=== PATIENT | male | born 1955 | race Asian ===

== ENCOUNTER → 2017-07-11 | Outpatient (CLI) | payer OTHER | END | disposition home or self-care (01) | LOC: CFH 06:39 | PROVIDERS: ATTEND Internal Medicine Cardiovascular Disease | DX: I08.3 Combined rheumatic disorders of mitral, aortic and tricuspid valves (principal); I72.8 Aneurysm of other specified arteries; I10 Essential (primary) hypertension | CPT/HCPCS: 78452; 93017; 93306; A9502 ==

== ENCOUNTER 2017-07-30 09:35 | Day surgery (SDC) | payer OTHER ==
[2017-07-25 14:06] VITALS: BP 141/71
[2017-07-25 14:36] LABS: HEMATOCRIT 42.8 % (39.2-51.8); HEMOGLOBIN 14.2 g/dL (13.7-18.0); WHITE BLOOD COUNT 4.4 x10^3/uL (3.4-10)
[2017-07-25 14:48] LABS: ASPARTATE AMINO TRANSFERASE 22 U/L (15-37); BLOOD UREA NITROGEN 17 mg/dL (7-18)
[~2017-07-30] VITALS: Ht 165.1 cm; Wt 61.3 kg
[~2017-07-30 09:35] MED LIST: ASPI-496 PO; BIMA2.5D EACHEYE; TIMO5DRO5 EACHEYE; VALS160T3 PO; VALS1TAB7 PO
[2017-07-30] MEDS ORDERED: SODIUM CHLORIDE 0.9% 1,000 ML IV SCH (10:05)
[2017-07-30] MEDS ORDERED: MIDAZOLAM 1 MG/ML, 5ML ONE (10:28)
[2017-07-30] MEDS ORDERED: FENTANYL PF 100 MCG/2ML ONE (10:28)
[2017-07-30] MEDS ORDERED: LIDOCAINE 2%, 20ML ONE (10:29)
[2017-07-30] MEDS ORDERED: ACETAMINOPHEN 325 MG TABLET PO PRN (10:30)
[2017-07-30] MEDS ORDERED: BISACODYL 5 MG EC TABLET PO PRN (10:30)
[2017-07-30] MEDS ORDERED: ASPIRIN 325 MG TABLET EC PO ONE (10:30)
[2017-07-30] MEDS ORDERED: ONDANSETRON 2MG/ML, 2ML IVPush PRN (10:30)
[2017-07-30] MEDS ORDERED: BISACODYL 10 MG SUPP PR PRN (10:30)
[2017-07-30] MEDS ORDERED: NITROGLYCERIN 5 MG/ML, 10ML ONE (11:28)
[2017-07-30] MEDS ORDERED: BIVALIRUDIN 250 MG ONE (11:28)
[2017-07-30] MEDS ORDERED: TICAGRELOR 90 MG TABLET ONE (11:28)
[2017-07-30] MEDS ORDERED: HEPARIN 1,000 UNITS/ML, 10ML ONE (11:29)
[2017-07-30] MEDS ORDERED: METO25TA2 PO (12:56)
[2017-07-30] MEDS ORDERED: ATOR10TA9 PO (12:56)
== END 2017-07-30 14:40 | disposition home or self-care (01) ==
LOC: CACL 09:35
PROVIDERS: ATTEND Internal Medicine Cardiovascular Disease
DX: I25.10 Atherosclerotic heart disease of native coronary artery without angina pectoris (principal); I10 Essential (primary) hypertension; Z98.49 Cataract extraction status, unspecified eye; Z87.19 Personal history of other diseases of the digestive system; E78.5 Hyperlipidemia, unspecified; G47.9 Sleep disorder, unspecified
CPT/HCPCS: 93458; 99156; C1760; C1894; J2250; J3010; J3490; Q9967; 36415; 71020; 80053; 83036; 85025; 85610; 85730; J0583; J1644

== ENCOUNTER 2019-02-27 16:44 | Inpatient (IN) | payer OTHER, MEDICARE ==
[~2019-02-27] VITALS: Ht 165.1 cm; Wt 64.1 kg
[~2019-02-27 16:44] MED LIST changes: +ATOR10TA9 PO; +METO25TA2 PO
--- NOTE | 2019-02-27 17:26 | NUR ---
pt presented to ed with altered level of consiousness. apparently pt returned home and was unable to remember where he was or what he was doing per . pt alert to self. pt unaaware of date, time, day of the week. pt up ambulatory. pt placed in room and placed on bp and cont. pulse oximeter. assessment completed. pa at bedside.
--- NOTE | 2019-02-27 17:31 | NUR ---
EDTA and EMT student at bedside for IV start.
[2019-02-27] MEDS ORDERED: VALS1TAB26 PO (17:35)
--- NOTE | 2019-02-27 17:37 | NUR ---
REPORT GIVEN TO JENNIFER HELM
--- NOTE | 2019-02-27 18:02 | NUR ---
Dr. Bryant at bedside to evaluate pt.
[2019-02-27 18:10] LABS: BASOPHILS # (AUTO) 0.01 x10^3/uL (0-0.1); BASOPHILS % (AUTO) 0 % (0-1); EOSINOPHILS # (AUTO) 0.02 x10^3/uL (0-0.4); EOSINOPHILS % (AUTO) 1 % (1-7); LYMPHOCYTES # (AUTO) 1.17 x10^3/uL (1-3.4); LYMPHOCYTES % (AUTO) 23 % (22-44); MD NO; MEAN CORPUSCULAR HEMOGLOBIN 32.3 pg (27.5-34.5); MEAN CORPUSCULAR HGB CONC 34.5 g/dL (33.2-36.2); MEAN CORPUSCULAR VOLUME 93.6 fL (81-97); MEAN PLATELET VOLUME 6.5 fL (7.4-10.4); MONOCYTES # (AUTO) 0.69 x10^3/uL (0.2-0.8); MONOCYTES % (AUTO) 13 % (2-9); NEUTROPHILS # (AUTO) 3.29 x10^3/uL (1.8-6.8); NEUTROPHILS % (AUTO) 63 % (42-75); PLATELET COUNT 209 x10^3/uL (130-400); RED BLOOD COUNT 4.58 x10^6/uL (4.38-5.82)
--- NOTE | 2019-02-27 18:16 | NUR ---
EDT at bedside for EKG.
[2019-02-27 18:17] LABS: ALBUMIN 4.1 g/dL (3.4-5.0); ANION GAP 6 mmol/L (5-15); CALCIUM 8.9 mg/dL (8.5-10.1); CHLORIDE 96 mmol/L (98-107)
[2019-02-27 18:21] LABS: ALANINE AMINOTRANSFERASE 36 U/L (12-78); ALKALINE PHOSPHATASE 46 U/L (45-117); BILIRUBIN,TOTAL 1.4 mg/dL (0.2-1.0); CREATININE 1.17 mg/dL (0.7-1.3); INTERNATIONAL NORMALIZED RATIO 1.08 (0.93-1.1); PROTHROMBIN TIME 11.3 Seconds (9.6-11.5); TOTAL PROTEIN 7.6 g/dL (6.4-8.2)
--- NOTE | 2019-02-27 19:25 | NUR ---
Dr. Bryant at bedside to discuss ED findings and POC.
--- NOTE | 2019-02-27 19:29 | NUR ---
Pt ambulated to bathroom with assistance of 1 family member. Pt back to bed with no incident.
[2019-02-27] MEDS ORDERED: ASPIRIN 325 MG TABLET PO ONE (19:30)
[2019-02-27] MEDS ORDERED: ASPIRIN 325 MG TABLET ONE (20:11)
--- NOTE | 2019-02-27 20:20 | NUR ---
Pt medicated per MAR.
--- NOTE | 2019-02-27 20:29 | NUR ---
Telephone SBAR report given to floor RN. Pt and family made aware of new room assignment.
[2019-02-27] MEDS ORDERED: BISACODYL 10 MG SUPP PR PRN (20:30)
[2019-02-27] MEDS ORDERED: POLYETHYLENE GLYCOL 17 GM PACKET PO PRN (20:30)
[2019-02-27] MEDS ORDERED: ONDANSETRON ODT 4 MG PO PRN (20:30)
[2019-02-27] MEDS ORDERED: ACETAMINOPHEN 325 MG TABLET PO PRN (20:30)
[2019-02-27 20:44] LABS: ANION GAP 7 mmol/L (5-15); CHLORIDE 98 mmol/L (98-107); CREATININE 0.94 mg/dL (0.7-1.3)
[2019-02-27 21:00] VITALS: BP 155/82
[2019-02-27 22:12] LABS: MICROSCOPIC NOT IND
[2019-02-27 22:14] LABS: CULTURE INDICATED? NO
[2019-02-27] MEDS ORDERED: OMNIPAQUE 350 MG/ML, 100ML BOTTLE ONE (22:30)
[2019-02-27] MEDS: SODIUM CHLORIDE 0.9% 1,000 ML IV SCH (23:26)
[2019-02-27] MEDS: SODIUM CHLORIDE FLUSH 10ML SYR IVF SCH (23:27)
[2019-02-27] MEDS: ATORVASTATIN 10 MG TABLET PO SCH (23:29)
[2019-02-27] MEDS: LATANOPROST OPHTH 0.005%, 2.5ML EACHEYE SCH (23:29)
[2019-02-28 01:15] VITALS: BP 101/59
[2019-02-28 02:21] VITALS: BP 115/57
[2019-02-28 04:19] VITALS: BP 108/55
[2019-02-28 07:22] VITALS: BP 129/73
[2019-02-28] MEDS ORDERED: METOPROLOL SUCCINATE 25 MG TAB.ER.24H PO SCH (09:00)
[2019-02-28] MEDS: SENNA/DOCUSATE TABLET PO SCH (09:00)
[2019-02-28] MEDS: SODIUM CHLORIDE 0.9% 1,000 ML IV SCH ×2 (09:30→19:30)
[2019-02-28] MEDS: VALSARTAN 160 MG TABLET PO SCH (09:57)
[2019-02-28] MEDS: HYDROCHLOROTHIAZIDE 25 MG TABLET PO SCH (09:57)
[2019-02-28] MEDS: SODIUM CHLORIDE FLUSH 10ML SYR IVF SCH ×2 (09:58→20:47)
[2019-02-28] MEDS: TIMOLOL OPHTH 0.5%, 5ML EACHEYE SCH (09:58)
[2019-02-28] MEDS: ASPIRIN 81 MG TABLET EC PO SCH (09:58)
[2019-02-28 14:00] VITALS: BP 119/69
[2019-02-28 19:41] VITALS: BP 144/78
[2019-02-28] MEDS: ATORVASTATIN 10 MG TABLET PO SCH (20:45)
[2019-02-28] MEDS: LATANOPROST OPHTH 0.005%, 2.5ML EACHEYE SCH (20:46)
[2019-03-01 00:36] VITALS: BP 133/81
[2019-03-01] MEDS: SODIUM CHLORIDE 0.9% 1,000 ML IV SCH (04:34)
[2019-03-01 06:41] VITALS: BP 160/71
[2019-03-01] MEDS ORDERED: METO25TA2 PO (07:47)
[2019-03-01] MEDS: TIMOLOL OPHTH 0.5%, 5ML EACHEYE SCH (08:23)
[2019-03-01] MEDS: HYDROCHLOROTHIAZIDE 25 MG TABLET PO SCH (08:23)
[2019-03-01] MEDS: ASPIRIN 81 MG TABLET EC PO SCH (08:23)
[2019-03-01] MEDS: VALSARTAN 160 MG TABLET PO SCH (08:23)
[2019-03-01] MEDS: SENNA/DOCUSATE TABLET PO SCH (08:24)
[2019-03-01] MEDS: SODIUM CHLORIDE FLUSH 10ML SYR IVF SCH (08:24)
== END 2019-03-01 10:20 | disposition home or self-care (01) | DRG 71 ==
LOC: ED 17:54 → EDIP 19:29 → 4EST 20:45 → DCLOUNGE 03-01 09:56
PROVIDERS: ADMIT Family Medicine; ATTEND Family Medicine
DX: G45.4 Transient global amnesia (principal); E87.1 Hypo-osmolality and hyponatremia; E78.5 Hyperlipidemia, unspecified; R00.1 Bradycardia, unspecified; H40.9 Unspecified glaucoma; I10 Essential (primary) hypertension; L30.9 Dermatitis, unspecified; Z82.3 Family history of stroke; Z83.3 Family history of diabetes mellitus; Z82.49 Family history of ischemic heart disease and other diseases of the circulatory system
CPT/HCPCS: 36415; 70450; 70496; 70498; 70551; 80048; 80053; 81003; 83735; 85025; 85610; 93005; 93308; 99285; G0378; Q9967; J7030

== ENCOUNTER 2019-05-17 07:23 | Day surgery (SDC) | payer OTHER ==
[~2019-05-17] VITALS: Ht 165.1 cm; Wt 62.7 kg
[~2019-05-17 07:23] MED LIST changes: +VALS1TAB26 PO
[2019-05-17 07:28] VITALS: BP 152/74
[2019-05-17] MEDS ORDERED: LIDOCAINE 2%, 20ML ONE (08:22)
== END 2019-05-17 08:55 | disposition home or self-care (01) ==
LOC: CACL 07:23
PROVIDERS: ATTEND Internal Medicine Cardiovascular Disease
DX: G45.9 Transient cerebral ischemic attack, unspecified (principal); I10 Essential (primary) hypertension; E78.5 Hyperlipidemia, unspecified; Q67.6 Pectus excavatum; I25.2 Old myocardial infarction; E66.3 Overweight; Z68.22 Body mass index [BMI] 22.0-22.9, adult; Z72.89 Other problems related to lifestyle; Z79.82 Long term (current) use of aspirin; Z79.899 Other long term (current) drug therapy; Z82.3 Family history of stroke; Z82.49 Family history of ischemic heart disease and other diseases of the circulatory system
CPT/HCPCS: 33285; C1764

== ENCOUNTER 2020-04-04 04:59 | Emergency (ER) | payer MEDICARE, OTHER ==
[~2020-04-04] VITALS: Ht 165.1 cm; Wt 61.6 kg
[2020-04-04] MEDS ORDERED: LIDOCAINE-MPF 1%, 5ML ONE ×2 (05:20→05:23)
[2020-04-04] MEDS ORDERED: LIDOCAINE-MPF 2%, 2ML INFIL ONE (05:30)
[2020-04-04] MEDS: LIDOCAINE-MPF 1%, 5ML INFIL ONE ×2 (05:32→05:39)
[2020-04-04] MEDS ORDERED: HYDROcodone/APAP 5/325 TABLET ONE (05:41)
[2020-04-04] MEDS ORDERED: HYDROcodone/APAP 5/325 TABLET PO ONE (06:00)
[2020-04-04 06:24] VITALS: BP 130/85
== END 2020-04-04 06:26 | disposition home or self-care (01) ==
LOC: ED 05:56
DX: S43.102A Unspecified dislocation of left acromioclavicular joint, initial encounter (principal); I10 Essential (primary) hypertension; W06.XXXA Fall from bed, initial encounter; Y93.89 Activity, other specified; Y92.098 Other place in other non-institutional residence as the place of occurrence of the external cause; Y99.8 Other external cause status
CPT/HCPCS: 99283

== ENCOUNTER 2021-07-13 17:57 | Inpatient (IN) | payer MEDICARE, OTHER ==
[~2021-07-13] VITALS: Ht 165.1 cm; Wt 64.1 kg
[~2021-07-13 17:57] MED LIST changes: +ALBUMIN HUMAN 5% 500 ML IV PRN; +CEFUROXIME 1.5 GM in SODIUM CHLORIDE 0.9% 50 ML IVPB PRN; +DEXMEDETOMIDINE 200 MCG in SODIUM CHLORIDE 0.9% 48 ML IV PRN; +EPINEPHRINE 5 MG in SODIUM CHLORIDE 0.9% 245 ML IV PRN; +MANNITOL PMX 20% 500 ML IVPB PRN; +PHENYLEPHRINE 50 MG in SODIUM CHLORIDE 0.9% 245 ML IV PRN; +POTASSIUM CHLORIDE 80 MEQ, SODIUM BICARBONATE 8.4% 10 MEQ, MAGNESIUM SULFATE 0.5 GM, LI... IV PRN; +REGULAR INSULIN 100 UNITS in SODIUM CHLORIDE 0.9% 99 ML IV PRN; +VANCOMYCIN 1,000 MG in SODIUM CHLORIDE 0.9% 100 ML IV PRN
--- NOTE | 2021-07-13 18:23 | NUR ---
Pt has implanted LOOP recorder, placed by dr campo. Pt appears weak, tired, nsr no ectopy. IV placed bloods drawn and sent, EKG done, on monitor nsr no ecotpy. Call gonsalves in reach
[2021-07-13] MEDS ORDERED: SODIUM CHLORIDE FLUSH 10ML SYR IVF ONE (18:30)
--- NOTE | 2021-07-13 18:31 | NUR ---
Christopher at bedside for evaluation and further orders.
[2021-07-13 18:32] LABS: BASOPHILS % (AUTO) 1 % (0-1); EOSINOPHILS % (AUTO) 0 % (1-7); LYMPHOCYTES % (AUTO) 10 % (22-44); MEAN CORPUSCULAR HEMOGLOBIN 32.1 pg (27.5-34.5); MEAN CORPUSCULAR HGB CONC 34.3 g/dL (33.2-36.2); MEAN PLATELET VOLUME 6.6 fL (7.4-10.4); MONOCYTES % (AUTO) 12 % (2-9); NEUTROPHILS % (AUTO) 78 % (42-75); PLATELET COUNT 152 x10^3/uL (130-400); RED BLOOD COUNT 4.18 x10^6/uL (4.38-5.82); RED CELL DISTRIBUTION WIDTH 13.2 % (9.4-14.8)
--- NOTE | 2021-07-13 18:36 | NUR ---
Further orders to follow.
--- NOTE | 2021-07-13 18:39 | NUR ---
IVF infusing wide open, repeat EKG for appearing junctional rhythm, no p waves present on tele now. No cp, no sob.
[2021-07-13 18:41] LABS: ALANINE AMINOTRANSFERASE 47 U/L (12-78); ALBUMIN 3.2 g/dL (3.4-5.0); ANION GAP 8 mmol/L (5-15); CALCIUM 8.8 mg/dL (8.5-10.1); CHLORIDE 97 mmol/L (98-107); CREATININE 1.09 mg/dL (0.7-1.3)
[2021-07-13 18:46] LABS: ALKALINE PHOSPHATASE 52 U/L (45-117); BILIRUBIN,TOTAL 1.2 mg/dL (0.2-1.0); TOTAL PROTEIN 7.3 g/dL (6.4-8.2)
[2021-07-13] MEDS ORDERED: SODIUM CHLORIDE 0.9% 1,000ML IVBOLUS ONE (19:00)
[2021-07-13] MEDS ORDERED: POTASSIUM CHLORIDE 20 MEQ TAB.ER.PRT PO ONE (19:00)
[2021-07-13] MEDS ORDERED: POTASSIUM CHLORIDE 20 MEQ TAB.ER.PRT ONE (19:19)
[2021-07-13] MEDS ORDERED: ASPIRIN 81 MG TABLET EC ONE (19:21)
--- NOTE | 2021-07-13 19:29 | NUR ---
spoke with erp, pt placed on pads, another piv placed, medicated per emar, cards to come and consult. pt asymptomatic at this time 1 liter ns still running
[2021-07-13] MEDS ORDERED: ASPIRIN 325 MG TABLET PO ONE (19:30)
[2021-07-13] MEDS ORDERED: ATROPINE 0.4 MG/ML, 1ML IVPush ONE (20:00)
[2021-07-13] MEDS ORDERED: TELM1TAB25 PO (20:49)
--- NOTE | 2021-07-13 20:50 | NUR ---
hosp at bedside. pt to go to equipment operator/laborer/supervisor
[2021-07-13] MEDS: MUPIROCIN OINT 2%, 15GM NAS SCH (21:00)
[2021-07-13] MEDS: ATORVASTATIN 40 MG TABLET PO SCH (21:00)
[2021-07-13] MEDS ORDERED: DIPHENHYDRAMINE 25 MG CAPSULE PO PRN (21:00)
[2021-07-13] MEDS ORDERED: FENTANYL PF 100 MCG/2ML ONE (21:15)
[2021-07-13] MEDS ORDERED: BIVALIRUDIN 250 MG ONE (21:15)
[2021-07-13] MEDS ORDERED: LIDOCAINE 2%, 20ML ONE (21:15)
[2021-07-13] MEDS ORDERED: VERAPAMIL 2.5 MG/ML, 2ML ONE (21:15)
[2021-07-13] MEDS ORDERED: HEPARIN 1,000 UNITS/ML, 10ML ONE ×2 (21:15→22:58)
[2021-07-13] MEDS ORDERED: MIDAZOLAM 1 MG/ML, 5ML ONE (21:15)
--- NOTE | 2021-07-13 22:16 | NUR ---
report given to nicolasa yen. [facility]
[2021-07-13] MEDS ORDERED: PAPAVERINE 30 MG/ML, 2ML ONE (22:58)
[2021-07-13] MEDS ORDERED: MIDAZOLAM 10MG/2 ML ONE (23:09)
[2021-07-13] MEDS ORDERED: ROCURONIUM 10MG/ML,5ML ONE (23:09)
[2021-07-13] MEDS ORDERED: FENTANYL PF 250 MCG/5ML ONE ×4 (23:09)
[2021-07-13] MEDS ORDERED: PHENYLEPHRINE 10 MG/ML ONE (23:27)
[2021-07-13] MEDS ORDERED: EPINEPHRINE SYRINGE 0.1 MG/ML, 10ML ONE (23:27)
[2021-07-14] MEDS ORDERED: SODIUM CHLORIDE 0.9% 1,000 ML IV SCH
[2021-07-14] MEDS ORDERED: INSULIN REGULAR 100 UNITS/ML, 3ML VIAL IVPush PRN
[2021-07-14] MEDS ORDERED: GLUCAGON 1 MG IM PRN
[2021-07-14] MEDS ORDERED: NITROGLYCERIN/D5W PMX 250 ML IV PRN
[2021-07-14] MEDS ORDERED: OXYcodone IR 5MG TABLET PO PRN
[2021-07-14] MEDS ORDERED: PHENYLEPHRINE 50 MG in SODIUM CHLORIDE 0.9% 245 ML IV PRN
[2021-07-14] MEDS ORDERED: DEXTROSE 4 GM TAB.CHEW PO PRN
[2021-07-14] MEDS ORDERED: DOBUTAMINE 250 MG in SODIUM CHLORIDE 0.9% 230 ML IV PRN
[2021-07-14] MEDS ORDERED: PROMETHAZINE 25 MG SUPP PR PRN
[2021-07-14] MEDS ORDERED: PROCHLORPERAZINE 5 MG/ML, 2ML IVPush PRN
[2021-07-14] MEDS ORDERED: VASOPRESSIN 20 UNIT in SODIUM CHLORIDE 0.9% 99 ML IV PRN
[2021-07-14] MEDS ORDERED: DEXTROSE 50%, 50ML SYRINGE IVPush PRN
[2021-07-14] MEDS ORDERED: CALCIUM CHLORIDE 13.6 MEQ in SODIUM CHLORIDE 0.9% 100 ML IVPB PRN
[2021-07-14] MEDS ORDERED: REGULAR INSULIN 100 UNITS in SODIUM CHLORIDE 0.9% 99 ML IV PRN
[2021-07-14] MEDS ORDERED: ALBUMIN HUMAN 5% 500 ML IV PRN
[2021-07-14] MEDS ORDERED: HYDROmorphone 1 MG/ML, 1ML INJ IV PRN
[2021-07-14] MEDS ORDERED: ONDANSETRON 2MG/ML, 2ML IVPush PRN
[2021-07-14] MEDS ORDERED: SODIUM BICARB 8.4%, 50ML SYRINGE IV PRN
[2021-07-14] MEDS ORDERED: CALCIUM CHLORIDE 10%, 10ML SYR ONE ×2 (01:00→03:18)
[2021-07-14] MEDS ORDERED: ROCURONIUM 10MG/ML,5ML ONE (01:00)
[2021-07-14] MEDS ORDERED: PROTAMINE SULFATE 10 MG/ML, 25ML ONE ×2 (01:00)
[2021-07-14] MEDS ORDERED: FENTANYL PF 250 MCG/5ML ONE (02:44)
[2021-07-14] MEDS ORDERED: SODIUM BICARBONATE 1 MEQ/ML, 50ML VIAL ONE (03:18)
[2021-07-14] MEDS ORDERED: HEPARIN 1,000 UNITS/ML, 30ML ONE (03:18)
[2021-07-14] MEDS ORDERED: SODIUM BICARB 8.4%, 50ML SYRINGE ONE (03:18)
[2021-07-14] MEDS ORDERED: LIDOCAINE 2%, 20ML ONE (03:18)
[2021-07-14] MEDS ORDERED: ALBUMIN HUMAN 25% 50 ML ONE (03:19)
[2021-07-14] MEDS ORDERED: MAGNESIUM SULFATE PMX 2GM/50ML 50 ML ONE (03:19)
[2021-07-14 03:49] LABS: GLUCOSE BY BLOOD GAS ANALYZER 119 mg/dL (70-110); HEMOGLOBIN BY BLOOD GAS ANALYZ 10.3 g/dL (14.0-18.0); POTASSIUM BY BLOOD GAS ANALYZR 3.8 mmol/L (3.6-5.5)
[2021-07-14] MEDS: INSULIN LISPRO 100 UNITS/ML, PEN SQ-INSULIN SCH ×6 (04:00→20:24)
[2021-07-14] MEDS: KSCALE TO 4.5 IV SCH ×3 (04:00→18:09)
[2021-07-14 04:23] LABS: INTERNATIONAL NORMALIZED RATIO 1.34 (0.93-1.1); PROTHROMBIN TIME 14.1 Seconds (9.6-11.5)
[2021-07-14] MEDS ORDERED: POTASSIUM CHLORIDE PMX 100 ML IV ONE ×3 (04:30→22:30)
[2021-07-14] MEDS: MAGNESIUM SULFATE 1 GM in SODIUM CHLORIDE 0.9% 100 ML IVPB SCH (04:42)
[2021-07-14] MEDS: MUPIROCIN OINT 2%, 15GM NAS SCH ×2 (06:00→20:20)
[2021-07-14] MEDS: ACETAMINOPHEN 500 MG TABLET PO SCH ×4 (06:00→20:22)
[2021-07-14] MEDS: OMEPRAZOLE 20 MG CAPSULE.DR PO SCH (06:05)
[2021-07-14] MEDS: EPINEPHRINE 5 MG in SODIUM CHLORIDE 0.9% 245 ML IV PRN ×3 (06:07→20:19)
[2021-07-14] MEDS: SENNA/DOCUSATE TABLET PO SCH ×2 (09:00→21:58)
[2021-07-14] MEDS: SODIUM CHLORIDE FLUSH 10ML SYR IVF SCH ×2 (09:00→20:54)
[2021-07-14] MEDS: ASPIRIN 81 MG TABLET EC PO SCH (09:00)
[2021-07-14] MEDS: DOCUSATE 100 MG CAPSULE PO SCH ×2 (09:00→20:55)
[2021-07-14] MEDS: CLOPIDOGREL 75 MG TABLET PO SCH (09:00)
[2021-07-14] MEDS: CHLORHEXIDINE 15 ML UDC MM SCH ×2 (09:00→20:54)
[2021-07-14] MEDS: POLYETHYLENE GLYCOL 17 GM PACKET PO SCH (09:00)
[2021-07-14 09:46] LABS: BASOPHILS % (AUTO) 0 % (0-1); EOSINOPHILS % (AUTO) 0 % (1-7); LYMPHOCYTES % (AUTO) 5 % (22-44); MEAN CORPUSCULAR HGB CONC 33.5 g/dL (33.2-36.2); MEAN PLATELET VOLUME 8.1 fL (7.4-10.4); MONOCYTES % (AUTO) 8 % (2-9); NEUTROPHILS % (AUTO) 87 % (42-75); PLATELET COUNT 151 x10^3/uL (130-400); RED BLOOD COUNT 2.85 x10^6/uL (4.38-5.82); RED CELL DISTRIBUTION WIDTH 13.4 % (9.4-14.8)
[2021-07-14 09:49] LABS: ANION GAP 14 mmol/L (5-15); CALCIUM 7.4 mg/dL (8.5-10.1); CHLORIDE 112 mmol/L (98-107)
[2021-07-14] MEDS: FENTANYL PF 100 MCG/2ML IV PRN ×3 (09:59→22:10)
[2021-07-14] MEDS: CEFUROXIME 1.5 GM in SODIUM CHLORIDE 0.9% 50 ML IVPB SCH ×2 (10:35→23:37)
[2021-07-14] MEDS: LACTATED RINGERS 500 ML IV PRN ×3 (10:55→17:07)
[2021-07-14] MEDS: VANCOMYCIN 900 MG in SODIUM CHLORIDE 0.9% 100 ML IVPB SCH (12:06)
[2021-07-14 12:08] VITALS: BP 109/50
[2021-07-14] MEDS ORDERED: POTASSIUM CHLORIDE 30 MEQ in SODIUM CHLORIDE 0.9% 100 ML IV ONE (18:00)
[2021-07-14] MEDS: DEXMEDETOMIDINE 400 MCG in SODIUM CHLORIDE 0.9% 96 ML IV PRN (21:53)
[2021-07-14] MEDS: ATORVASTATIN 40 MG TABLET PO SCH (21:58)
[2021-07-14] MEDS: OXYcodone IR 5MG TABLET PO PRN (22:19)
[2021-07-15] MEDS: KSCALE TO 4.5 IV SCH (00:09)
[2021-07-15] MEDS: INSULIN LISPRO 100 UNITS/ML, PEN SQ-INSULIN SCH ×6 (01:00→20:26)
[2021-07-15] MEDS: MAGNESIUM SULFATE 1 GM in SODIUM CHLORIDE 0.9% 100 ML IVPB SCH (01:14)
[2021-07-15] MEDS: VANCOMYCIN 900 MG in SODIUM CHLORIDE 0.9% 100 ML IVPB SCH (02:47)
[2021-07-15] MEDS: DEXMEDETOMIDINE 400 MCG in SODIUM CHLORIDE 0.9% 96 ML IV PRN ×2 (02:49→05:02)
[2021-07-15] MEDS: ACETAMINOPHEN 500 MG TABLET PO SCH ×4 (02:55→20:27)
[2021-07-15] MEDS: OXYcodone IR 5MG TABLET PO PRN (03:42)
[2021-07-15 04:41] LABS: BASOPHILS % (AUTO) 0 % (0-1); EOSINOPHILS % (AUTO) 0 % (1-7); LYMPHOCYTES % (AUTO) 7 % (22-44); MEAN CORPUSCULAR HEMOGLOBIN 32.1 pg (27.5-34.5); MEAN CORPUSCULAR HGB CONC 33.8 g/dL (33.2-36.2); MEAN PLATELET VOLUME 8.5 fL (7.4-10.4); MONOCYTES % (AUTO) 12 % (2-9); NEUTROPHILS % (AUTO) 82 % (42-75); PLATELET COUNT 104 x10^3/uL (130-400); RED BLOOD COUNT 2.63 x10^6/uL (4.38-5.82); RED CELL DISTRIBUTION WIDTH 13.8 % (9.4-14.8)
[2021-07-15 04:49] LABS: ANION GAP 5 mmol/L (5-15); CALCIUM 7.9 mg/dL (8.5-10.1); CHLORIDE 115 mmol/L (98-107); CREATININE 0.72 mg/dL (0.7-1.3)
[2021-07-15] MEDS: EPINEPHRINE 5 MG in SODIUM CHLORIDE 0.9% 245 ML IV PRN ×2 (05:02→17:48)
[2021-07-15] MEDS: SODIUM CHLORIDE FLUSH 10ML SYR IVF SCH ×2 (08:01→20:27)
[2021-07-15] MEDS: CARVEDILOL 3.125 MG TABLET PO SCH ×2 (08:08→20:14)
[2021-07-15] MEDS: MUPIROCIN OINT 2%, 15GM NAS SCH ×2 (08:08→17:28)
[2021-07-15] MEDS: ASPIRIN 81 MG TABLET EC PO SCH (08:18)
[2021-07-15] MEDS: ENOXAPARIN 40 MG/0.4 ML SQ SCH (08:18)
[2021-07-15] MEDS: CLOPIDOGREL 75 MG TABLET PO SCH (08:18)
[2021-07-15] MEDS: OMEPRAZOLE 20 MG CAPSULE.DR PO SCH (08:18)
[2021-07-15] MEDS: SENNA/DOCUSATE TABLET PO SCH ×2 (08:18→20:28)
[2021-07-15] MEDS: DOCUSATE 100 MG CAPSULE PO SCH (08:18)
[2021-07-15] MEDS: POLYETHYLENE GLYCOL 17 GM PACKET PO SCH (08:19)
[2021-07-15] MEDS: CHLORHEXIDINE 15 ML UDC MM SCH ×2 (08:19→20:13)
[2021-07-15] MEDS ORDERED: PROPOFOL 100 ML IV ONE (08:42)
[2021-07-15] MEDS: PROPOFOL 100 ML IV PRN ×2 (09:23→17:41)
[2021-07-15] MEDS: FUROSEMIDE 20 MG/2 ML IV SCH (16:53)
[2021-07-15] MEDS: DOCUSATE 50 MG/5 ML, 10ML UDC PO SCH (20:27)
[2021-07-15] MEDS: ATORVASTATIN 40 MG TABLET PO SCH (20:27)
[2021-07-15] MEDS ORDERED: ARTIFICIAL TEARS OINT 3.5 GM EACHEYE PRN (20:30)
[2021-07-16] MEDS ORDERED: BISACODYL 10 MG SUPP PR PRN
[2021-07-16] MEDS: INSULIN LISPRO 100 UNITS/ML, PEN SQ-INSULIN SCH ×6 (00:06→20:00)
[2021-07-16] MEDS: ACETAMINOPHEN 500 MG TABLET PO SCH ×4 (01:58→21:45)
[2021-07-16] MEDS: PROPOFOL 100 ML IV PRN ×4 (01:59→21:45)
[2021-07-16 04:44] LABS: BASOPHILS % (AUTO) 0 % (0-1); EOSINOPHILS % (AUTO) 0 % (1-7); LYMPHOCYTES % (AUTO) 12 % (22-44); MEAN CORPUSCULAR HGB CONC 33.8 g/dL (33.2-36.2); MEAN PLATELET VOLUME 8.4 fL (7.4-10.4); MONOCYTES % (AUTO) 8 % (2-9); NEUTROPHILS % (AUTO) 80 % (42-75); PLATELET COUNT 92 x10^3/uL (130-400); RED BLOOD COUNT 2.42 x10^6/uL (4.38-5.82); RED CELL DISTRIBUTION WIDTH 14.2 % (9.4-14.8)
[2021-07-16 04:48] LABS: CALCIUM 7.9 mg/dL (8.5-10.1); CREATININE 0.65 mg/dL (0.7-1.3)
[2021-07-16 05:00] LABS: ANION GAP 5 mmol/L (5-15); CHLORIDE 115 mmol/L (98-107)
[2021-07-16 05:23] VITALS: BP 111/77
[2021-07-16 05:30] VITALS: BP 117/54
[2021-07-16 05:45] VITALS: BP 94/52
[2021-07-16] MEDS: MUPIROCIN OINT 2%, 15GM NAS SCH ×2 (06:09→16:53)
[2021-07-16 06:15] VITALS: BP 107/54
[2021-07-16] MEDS: EPINEPHRINE 5 MG in SODIUM CHLORIDE 0.9% 245 ML IV PRN ×2 (07:00→18:15)
[2021-07-16 07:14] VITALS: BP 108/60
[2021-07-16] MEDS: CARVEDILOL 3.125 MG TABLET PO SCH ×2 (07:37→21:45)
[2021-07-16] MEDS: FUROSEMIDE 20 MG/2 ML IV SCH ×2 (08:17→16:52)
[2021-07-16] MEDS: CLOPIDOGREL 75 MG TABLET PO SCH (08:17)
[2021-07-16] MEDS: SENNA/DOCUSATE TABLET PO SCH ×2 (08:17→20:28)
[2021-07-16] MEDS: ENOXAPARIN 40 MG/0.4 ML SQ SCH (08:17)
[2021-07-16] MEDS: POTASSIUM CHLORIDE 20 MEQ PACKET PO SCH ×3 (08:17→16:52)
[2021-07-16] MEDS: POLYETHYLENE GLYCOL 17 GM PACKET PO SCH (08:17)
[2021-07-16] MEDS: ASPIRIN 81 MG TABLET EC PO SCH (08:17)
[2021-07-16] MEDS: DOCUSATE 50 MG/5 ML, 10ML UDC PO SCH ×2 (08:17→21:46)
[2021-07-16] MEDS: OMEPRAZOLE 20 MG CAPSULE.DR PO SCH (08:17)
[2021-07-16] MEDS: SODIUM CHLORIDE FLUSH 10ML SYR IVF SCH ×2 (08:19→21:47)
[2021-07-16 08:24] VITALS: BP 107/53
[2021-07-16 10:30] LABS: BASOPHILS % (AUTO) 0 % (0-1); EOSINOPHILS % (AUTO) 0 % (1-7); LYMPHOCYTES % (AUTO) 9 % (22-44); MEAN CORPUSCULAR HEMOGLOBIN 31.8 pg (27.5-34.5); MEAN PLATELET VOLUME 8.2 fL (7.4-10.4); MONOCYTES % (AUTO) 7 % (2-9); NEUTROPHILS % (AUTO) 84 % (42-75); PLATELET COUNT 86 x10^3/uL (130-400); RED BLOOD COUNT 2.95 x10^6/uL (4.38-5.82)
[2021-07-16] MEDS: ATORVASTATIN 40 MG TABLET PO SCH (21:45)
[2021-07-17] MEDS: INSULIN LISPRO 100 UNITS/ML, PEN SQ-INSULIN SCH ×6 (04:00→20:00)
[2021-07-17 04:09] LABS: BASOPHILS % (AUTO) 0 % (0-1); EOSINOPHILS % (AUTO) 0 % (1-7); LYMPHOCYTES % (AUTO) 9 % (22-44); MEAN CORPUSCULAR HEMOGLOBIN 32.4 pg (27.5-34.5); MEAN CORPUSCULAR HGB CONC 34.1 g/dL (33.2-36.2); MEAN PLATELET VOLUME 8.1 fL (7.4-10.4); MONOCYTES % (AUTO) 8 % (2-9); NEUTROPHILS % (AUTO) 83 % (42-75); PLATELET COUNT 79 x10^3/uL (130-400); RED BLOOD COUNT 2.84 x10^6/uL (4.38-5.82); RED CELL DISTRIBUTION WIDTH 14.1 % (9.4-14.8)
[2021-07-17] MEDS: ACETAMINOPHEN 500 MG TABLET PO SCH ×4 (04:11→20:30)
[2021-07-17 04:16] LABS: ANION GAP 4 mmol/L (5-15); CALCIUM 7.8 mg/dL (8.5-10.1); CHLORIDE 115 mmol/L (98-107)
[2021-07-17] MEDS: MUPIROCIN OINT 2%, 15GM NAS SCH ×2 (05:30→18:24)
[2021-07-17] MEDS: PROPOFOL 100 ML IV PRN (05:30)
[2021-07-17] MEDS: FUROSEMIDE 20 MG/2 ML IV SCH ×2 (08:20→16:25)
[2021-07-17] MEDS: CLOPIDOGREL 75 MG TABLET PO SCH (08:42)
[2021-07-17] MEDS: OMEPRAZOLE 20 MG CAPSULE.DR PO SCH (08:42)
[2021-07-17] MEDS: SENNA/DOCUSATE TABLET PO SCH ×2 (08:42→20:30)
[2021-07-17] MEDS: ASPIRIN 81 MG TABLET EC PO SCH (08:46)
[2021-07-17] MEDS: POLYETHYLENE GLYCOL 17 GM PACKET PO SCH (08:46)
[2021-07-17] MEDS: CARVEDILOL 3.125 MG TABLET PO SCH (08:46)
[2021-07-17] MEDS: POTASSIUM CHLORIDE 20 MEQ PACKET PO SCH ×2 (08:46→16:26)
[2021-07-17] MEDS: ENOXAPARIN 40 MG/0.4 ML SQ SCH (08:47)
[2021-07-17] MEDS: SODIUM CHLORIDE FLUSH 10ML SYR IVF SCH ×2 (08:47→20:31)
[2021-07-17] MEDS: MAGNESIUM SULFATE 1 GM in SODIUM CHLORIDE 0.9% 100 ML IVPB SCH (08:47)
[2021-07-17] MEDS: DOCUSATE 50 MG/5 ML, 10ML UDC PO SCH ×2 (08:48→20:30)
[2021-07-17] MEDS ORDERED: AMIODARONE 450 MG in DEXTROSE 5% 241 ML IV PRN (12:30)
[2021-07-17] MEDS ORDERED: FILTER 0.22 MICRON FOR AMIODARONE IV PRN (12:30)
[2021-07-17] MEDS ORDERED: AMIODARONE 150 MG in DEXTROSE 5% 100 ML IV ONE (12:30)
[2021-07-17] MEDS ORDERED: ETOMIDATE 20 MG/10 ML ONE (14:16)
[2021-07-17] MEDS ORDERED: SUCCINYLCHOLINE 20 MG/ML, 10ML ONE (14:16)
[2021-07-17] MEDS: ATORVASTATIN 40 MG TABLET PO SCH (20:30)
[2021-07-18] MEDS: PROPOFOL 100 ML IV PRN ×3 (02:59→20:29)
[2021-07-18] MEDS: ACETAMINOPHEN 500 MG TABLET PO SCH ×4 (03:44→21:10)
[2021-07-18] MEDS: INSULIN LISPRO 100 UNITS/ML, PEN SQ-INSULIN SCH ×6 (04:00→20:00)
[2021-07-18 05:24] LABS: BASOPHILS % (AUTO) 0 % (0-1); EOSINOPHILS % (AUTO) 0 % (1-7); LYMPHOCYTES % (AUTO) 12 % (22-44); MEAN CORPUSCULAR HEMOGLOBIN 32.1 pg (27.5-34.5); MEAN CORPUSCULAR HGB CONC 33.6 g/dL (33.2-36.2); MEAN PLATELET VOLUME 8.1 fL (7.4-10.4); MONOCYTES % (AUTO) 10 % (2-9); NEUTROPHILS % (AUTO) 78 % (42-75); PLATELET COUNT 78 x10^3/uL (130-400); RED CELL DISTRIBUTION WIDTH 14.1 % (9.4-14.8)
[2021-07-18 05:56] LABS: ANION GAP 7 mmol/L (5-15); CALCIUM 8.1 mg/dL (8.5-10.1); CHLORIDE 111 mmol/L (98-107)
[2021-07-18 05:57] LABS: <PLATELET ESTIMATE> DECREASED; <PLT MORPHOLOGY> NORMAL PLT MORPH; ANISOCYTOSIS 1+; OVALOCYTES 1+; POLYCHROMASIA 1+
[2021-07-18 05:58] LABS: CREATININE 0.81 mg/dL (0.7-1.3)
[2021-07-18] MEDS: MUPIROCIN OINT 2%, 15GM NAS SCH ×2 (07:06→17:28)
[2021-07-18] MEDS: POTASSIUM CHLORIDE 20 MEQ PACKET PO SCH ×2 (08:07→17:24)
[2021-07-18] MEDS: FUROSEMIDE 20 MG/2 ML IV SCH ×2 (08:07→17:24)
[2021-07-18] MEDS: POLYETHYLENE GLYCOL 17 GM PACKET PO SCH (09:00)
[2021-07-18] MEDS: DOCUSATE 50 MG/5 ML, 10ML UDC PO SCH ×2 (09:00→21:00)
[2021-07-18] MEDS: SENNA/DOCUSATE TABLET PO SCH ×2 (09:00→21:00)
[2021-07-18] MEDS: PANTOPRAZOLE GRAN. PKT 40 MG PO SCH (09:27)
[2021-07-18] MEDS: CLOPIDOGREL 75 MG TABLET PO SCH (09:27)
[2021-07-18] MEDS: ASPIRIN 81 MG TABLET EC PO SCH (09:27)
[2021-07-18] MEDS: ENOXAPARIN 40 MG/0.4 ML SQ SCH (09:28)
[2021-07-18] MEDS: SODIUM CHLORIDE FLUSH 10ML SYR IVF SCH ×2 (09:28→21:11)
[2021-07-18] MEDS: OXYcodone IR 5MG TABLET PO PRN (15:54)
[2021-07-18] MEDS: EPINEPHRINE 5 MG in SODIUM CHLORIDE 0.9% 245 ML IV PRN (18:52)
[2021-07-18] MEDS: ATORVASTATIN 40 MG TABLET PO SCH (21:11)
[2021-07-19] MEDS: PROPOFOL 100 ML IV PRN ×3 (03:12→20:58)
[2021-07-19 03:42] LABS: BASOPHILS % (AUTO) 1 % (0-1); EOSINOPHILS % (AUTO) 1 % (1-7); LYMPHOCYTES % (AUTO) 16 % (22-44); MEAN CORPUSCULAR HEMOGLOBIN 32.6 pg (27.5-34.5); MEAN CORPUSCULAR HGB CONC 34.5 g/dL (33.2-36.2); MEAN PLATELET VOLUME 8.7 fL (7.4-10.4); MONOCYTES % (AUTO) 13 % (2-9); NEUTROPHILS % (AUTO) 70 % (42-75); PLATELET COUNT 89 x10^3/uL (130-400); RED BLOOD COUNT 2.95 x10^6/uL (4.38-5.82); RED CELL DISTRIBUTION WIDTH 13.9 % (9.4-14.8)
[2021-07-19 03:50] LABS: ANION GAP 9 mmol/L (5-15); CHLORIDE 110 mmol/L (98-107); CREATININE 0.74 mg/dL (0.7-1.3)
[2021-07-19] MEDS: INSULIN LISPRO 100 UNITS/ML, PEN SQ-INSULIN SCH ×6 (04:00→20:50)
[2021-07-19] MEDS: PANTOPRAZOLE GRAN. PKT 40 MG PO SCH (07:17)
[2021-07-19] MEDS: POTASSIUM CHLORIDE 20 MEQ PACKET PO SCH ×3 (07:18→17:46)
[2021-07-19] MEDS: FUROSEMIDE 20 MG/2 ML IV SCH ×2 (07:18→17:46)
[2021-07-19] MEDS: AMIODARONE 450 MG in DEXTROSE 5% 241 ML IV PRN ×2 (08:46→16:10)
[2021-07-19] MEDS: POLYETHYLENE GLYCOL 17 GM PACKET PO SCH (09:00)
[2021-07-19] MEDS: SENNA/DOCUSATE TABLET PO SCH ×2 (09:00→20:51)
[2021-07-19] MEDS: ASPIRIN 81 MG TABLET EC PO SCH (09:08)
[2021-07-19] MEDS: DOCUSATE 50 MG/5 ML, 10ML UDC PO SCH ×2 (09:08→20:51)
[2021-07-19] MEDS: CLOPIDOGREL 75 MG TABLET PO SCH (09:08)
[2021-07-19] MEDS: ENOXAPARIN 40 MG/0.4 ML SQ SCH (09:09)
[2021-07-19] MEDS: SODIUM CHLORIDE FLUSH 10ML SYR IVF SCH ×2 (09:15→20:51)
[2021-07-19] MEDS: ATORVASTATIN 40 MG TABLET PO SCH (20:51)
[2021-07-19] MEDS ORDERED: ALBUMIN HUMAN 5% 500 ML IV ONE (21:30)
[2021-07-20] MEDS: AMIODARONE 450 MG in DEXTROSE 5% 241 ML IV PRN (02:04)
[2021-07-20] MEDS: PROPOFOL 100 ML IV PRN (02:41)
[2021-07-20 05:56] LABS: BASOPHILS % (AUTO) 0 % (0-1); EOSINOPHILS % (AUTO) 2 % (1-7); LYMPHOCYTES % (AUTO) 16 % (22-44); MEAN CORPUSCULAR HEMOGLOBIN 32.1 pg (27.5-34.5); MONOCYTES % (AUTO) 17 % (2-9); NEUTROPHILS % (AUTO) 65 % (42-75); PLATELET COUNT 91 x10^3/uL (130-400); RED BLOOD COUNT 2.69 x10^6/uL (4.38-5.82); RED CELL DISTRIBUTION WIDTH 13.7 % (9.4-14.8)
[2021-07-20 06:03] LABS: ANION GAP 8 mmol/L (5-15); CALCIUM 8.3 mg/dL (8.5-10.1); CHLORIDE 108 mmol/L (98-107); CREATININE 0.69 mg/dL (0.7-1.3)
[2021-07-20] MEDS: INSULIN LISPRO 100 UNITS/ML, PEN SQ-INSULIN SCH ×4 (06:34→21:19)
[2021-07-20] MEDS: FUROSEMIDE 20 MG/2 ML IV SCH ×2 (07:36→17:44)
[2021-07-20] MEDS: POTASSIUM CHLORIDE 20 MEQ PACKET PO SCH ×2 (07:36→17:43)
[2021-07-20] MEDS: PANTOPRAZOLE GRAN. PKT 40 MG PO SCH (07:36)
[2021-07-20] MEDS: POLYETHYLENE GLYCOL 17 GM PACKET PO SCH (09:00)
[2021-07-20] MEDS: SENNA/DOCUSATE TABLET PO SCH ×2 (09:00→21:07)
[2021-07-20] MEDS: ASPIRIN 81 MG TABLET EC PO SCH (09:00)
[2021-07-20] MEDS ORDERED: POTASSIUM CHLORIDE 20 MEQ PACKET PO ONE (09:30)
[2021-07-20] MEDS: AMIODARONE 200 MG TABLET PO SCH ×2 (09:56→21:08)
[2021-07-20] MEDS: DOCUSATE 50 MG/5 ML, 10ML UDC PO SCH ×2 (09:56→21:08)
[2021-07-20] MEDS: CLOPIDOGREL 75 MG TABLET PO SCH (09:56)
[2021-07-20] MEDS: ENOXAPARIN 40 MG/0.4 ML SQ SCH (09:57)
[2021-07-20] MEDS: SODIUM CHLORIDE FLUSH 10ML SYR IVF SCH ×2 (09:58→21:10)
[2021-07-20] MEDS: OXYcodone IR 5MG TABLET PO PRN ×3 (13:19→22:08)
[2021-07-20] MEDS: DEXMEDETOMIDINE 400 MCG in SODIUM CHLORIDE 0.9% 96 ML IV PRN ×2 (15:23→22:41)
[2021-07-20] MEDS: EPINEPHRINE 5 MG in SODIUM CHLORIDE 0.9% 245 ML IV PRN (19:41)
[2021-07-20] MEDS: ATORVASTATIN 40 MG TABLET PO SCH (21:08)
[2021-07-20] MEDS ORDERED: HALOPERIDOL 5 MG/ML IV ONE (21:30)
[2021-07-21] MEDS: DEXMEDETOMIDINE 400 MCG in SODIUM CHLORIDE 0.9% 96 ML IV PRN ×2 (03:55→17:50)
[2021-07-21 04:22] LABS: ANION GAP 6 mmol/L (5-15); CALCIUM 8.8 mg/dL (8.5-10.1); CHLORIDE 109 mmol/L (98-107); CREATININE 0.78 mg/dL (0.7-1.3)
[2021-07-21 04:24] LABS: BASOPHILS % (AUTO) 0 % (0-1); EOSINOPHILS % (AUTO) 1 % (1-7); LYMPHOCYTES % (AUTO) 10 % (22-44); MEAN CORPUSCULAR HEMOGLOBIN 32.5 pg (27.5-34.5); MEAN CORPUSCULAR HGB CONC 34.1 g/dL (33.2-36.2); MEAN PLATELET VOLUME 9.3 fL (7.4-10.4); MONOCYTES % (AUTO) 14 % (2-9); NEUTROPHILS % (AUTO) 74 % (42-75); PLATELET COUNT 103 x10^3/uL (130-400); RED BLOOD COUNT 2.98 x10^6/uL (4.38-5.82); RED CELL DISTRIBUTION WIDTH 13.8 % (9.4-14.8)
[2021-07-21] MEDS: INSULIN LISPRO 100 UNITS/ML, PEN SQ-INSULIN SCH ×4 (06:42→20:38)
[2021-07-21] MEDS: FUROSEMIDE 20 MG/2 ML IV SCH ×2 (07:34→17:00)
[2021-07-21] MEDS: POTASSIUM CHLORIDE 20 MEQ PACKET PO SCH ×2 (07:34→16:59)
[2021-07-21] MEDS: PANTOPRAZOLE GRAN. PKT 40 MG PO SCH (07:34)
[2021-07-21] MEDS ORDERED: SPIRONOLACTONE 25 MG TABLET PO SCH (09:00)
[2021-07-21] MEDS: POLYETHYLENE GLYCOL 17 GM PACKET PO SCH (09:00)
[2021-07-21] MEDS: SENNA/DOCUSATE TABLET PO SCH ×2 (09:00→20:35)
[2021-07-21] MEDS ORDERED: CARVEDILOL 3.125 MG TABLET ONE (09:33)
[2021-07-21] MEDS: ENOXAPARIN 40 MG/0.4 ML SQ SCH (09:35)
[2021-07-21] MEDS: CLOPIDOGREL 75 MG TABLET PO SCH (09:35)
[2021-07-21] MEDS: QUETIAPINE 25MG TABLET PO SCH (09:35)
[2021-07-21] MEDS: DOCUSATE 50 MG/5 ML, 10ML UDC PO SCH ×2 (09:35→20:36)
[2021-07-21] MEDS: SODIUM CHLORIDE FLUSH 10ML SYR IVF SCH ×2 (09:36→20:38)
[2021-07-21] MEDS: CARVEDILOL 3.125 MG TABLET PO SCH ×2 (09:36→17:46)
[2021-07-21] MEDS ORDERED: ASPIRIN 81 MG TABLET CHEW PO SCH (09:42)
[2021-07-21] MEDS: ASPIRIN 81 MG TABLET CHEW PO SCH (09:57)
[2021-07-21] MEDS: OXYcodone IR 5MG TABLET PO PRN ×2 (17:00→20:36)
[2021-07-21] MEDS: FENTANYL PF 100 MCG/2ML IV PRN (17:45)
[2021-07-21] MEDS: ATORVASTATIN 40 MG TABLET PO SCH (20:36)
[2021-07-21] MEDS: EPINEPHRINE 5 MG in SODIUM CHLORIDE 0.9% 245 ML IV PRN (22:54)
[2021-07-22] MEDS: FENTANYL PF 100 MCG/2ML IV PRN (00:14)
[2021-07-22] MEDS ORDERED: PHARMACOKINETIC MONITORING MC PRN (01:00)
[2021-07-22] MEDS ORDERED: VANCOMYCIN PER PHARMACY MC PRN (01:00)
[2021-07-22] MEDS: DEXMEDETOMIDINE 400 MCG in SODIUM CHLORIDE 0.9% 96 ML IV PRN ×4 (01:14→22:43)
[2021-07-22] MEDS: ACETAMINOPHEN 500 MG TABLET PO SCH ×2 (01:29→05:19)
[2021-07-22] MEDS ORDERED: VANCOMYCIN 1,500 MG in SODIUM CHLORIDE 0.9% 250 ML IV ONE (01:30)
[2021-07-22] MEDS: CEFEPIME 2 GM in DEXTROSE 5% 100 ML IV SCH ×3 (01:44→16:40)
[2021-07-22 03:22] LABS: BASOPHILS % (AUTO) 0 % (0-1); EOSINOPHILS % (AUTO) 1 % (1-7); LYMPHOCYTES % (AUTO) 5 % (22-44); MEAN CORPUSCULAR HGB CONC 33.6 g/dL (33.2-36.2); MONOCYTES % (AUTO) 9 % (2-9); NEUTROPHILS % (AUTO) 85 % (42-75); PLATELET COUNT 116 x10^3/uL (130-400); RED BLOOD COUNT 2.87 x10^6/uL (4.38-5.82); RED CELL DISTRIBUTION WIDTH 14.3 % (9.4-14.8)
[2021-07-22 03:29] LABS: ANION GAP 5 mmol/L (5-15); CALCIUM 8.7 mg/dL (8.5-10.1); CHLORIDE 109 mmol/L (98-107); CREATININE 0.81 mg/dL (0.7-1.3)
[2021-07-22] MEDS: CARVEDILOL 3.125 MG TABLET PO SCH (05:19)
[2021-07-22] MEDS: INSULIN LISPRO 100 UNITS/ML, PEN SQ-INSULIN SCH ×4 (06:39→23:00)
[2021-07-22] MEDS: POTASSIUM CHLORIDE 20 MEQ PACKET PO SCH ×2 (08:39→17:27)
[2021-07-22] MEDS: OXYcodone IR 5MG TABLET PO PRN (08:39)
[2021-07-22] MEDS: PANTOPRAZOLE GRAN. PKT 40 MG PO SCH (08:39)
[2021-07-22] MEDS: DOCUSATE 50 MG/5 ML, 10ML UDC PO SCH ×2 (10:10→22:09)
[2021-07-22] MEDS: ENOXAPARIN 40 MG/0.4 ML SQ SCH (10:11)
[2021-07-22] MEDS: QUETIAPINE 25MG TABLET PO SCH (10:11)
[2021-07-22] MEDS: POLYETHYLENE GLYCOL 17 GM PACKET PO SCH (10:11)
[2021-07-22] MEDS: SENNA/DOCUSATE TABLET PO SCH ×2 (10:11→20:44)
[2021-07-22] MEDS: ASPIRIN 81 MG TABLET CHEW PO SCH (10:11)
[2021-07-22] MEDS: FUROSEMIDE 20 MG/2 ML IV SCH ×2 (10:11→17:27)
[2021-07-22] MEDS: CLOPIDOGREL 75 MG TABLET PO SCH (10:12)
[2021-07-22] MEDS: SODIUM CHLORIDE FLUSH 10ML SYR IVF SCH ×2 (10:12→22:09)
[2021-07-22] MEDS: ACETAMINOPHEN 500 MG TABLET PO PRN (12:15)
[2021-07-22] MEDS: VANCOMYCIN 1,200 MG in SODIUM CHLORIDE 0.9% 250 ML IV SCH (17:23)
[2021-07-22] MEDS: ATORVASTATIN 40 MG TABLET PO SCH (22:09)
[2021-07-23] MEDS: CEFEPIME 2 GM in DEXTROSE 5% 100 ML IV SCH ×3 (01:03→16:04)
[2021-07-23 04:30] LABS: BASOPHILS % (AUTO) 1 % (0-1); EOSINOPHILS % (AUTO) 2 % (1-7); LYMPHOCYTES % (AUTO) 4 % (22-44); MEAN CORPUSCULAR HEMOGLOBIN 31.6 pg (27.5-34.5); MEAN CORPUSCULAR HGB CONC 33.2 g/dL (33.2-36.2); MEAN PLATELET VOLUME 9.7 fL (7.4-10.4); MONOCYTES % (AUTO) 7 % (2-9); NEUTROPHILS % (AUTO) 86 % (42-75); PLATELET COUNT 112 x10^3/uL (130-400); RED BLOOD COUNT 2.66 x10^6/uL (4.38-5.82); RED CELL DISTRIBUTION WIDTH 14.5 % (9.4-14.8)
[2021-07-23 04:45] LABS: CHLORIDE 109 mmol/L (98-107)
[2021-07-23 04:50] LABS: ANION GAP 5 mmol/L (5-15); CALCIUM 8.4 mg/dL (8.5-10.1); CREATININE 0.72 mg/dL (0.7-1.3)
[2021-07-23] MEDS: DEXMEDETOMIDINE 400 MCG in SODIUM CHLORIDE 0.9% 96 ML IV PRN ×3 (05:11→17:45)
[2021-07-23] MEDS: VANCOMYCIN 1,200 MG in SODIUM CHLORIDE 0.9% 250 ML IV SCH ×2 (05:11→17:46)
[2021-07-23] MEDS: INSULIN LISPRO 100 UNITS/ML, PEN SQ-INSULIN SCH ×4 (06:00→23:23)
[2021-07-23] MEDS: FUROSEMIDE 20 MG/2 ML IV SCH ×2 (08:06→17:10)
[2021-07-23] MEDS: SODIUM CHLORIDE FLUSH 10ML SYR IVF SCH ×2 (08:06→22:08)
[2021-07-23] MEDS: PANTOPRAZOLE GRAN. PKT 40 MG PO SCH (08:06)
[2021-07-23] MEDS: QUETIAPINE 25MG TABLET PO SCH (09:17)
[2021-07-23] MEDS: SENNA/DOCUSATE TABLET PO SCH ×2 (09:17→22:08)
[2021-07-23] MEDS: POLYETHYLENE GLYCOL 17 GM PACKET PO SCH (09:17)
[2021-07-23] MEDS: POTASSIUM CHLORIDE 20 MEQ PACKET PO SCH ×2 (09:17→17:10)
[2021-07-23] MEDS: ASPIRIN 81 MG TABLET CHEW PO SCH (09:17)
[2021-07-23] MEDS: DOCUSATE 50 MG/5 ML, 10ML UDC PO SCH ×2 (09:18→22:08)
[2021-07-23] MEDS: ENOXAPARIN 40 MG/0.4 ML SQ SCH (09:18)
[2021-07-23] MEDS: ATORVASTATIN 40 MG TABLET PO SCH (22:08)
[2021-07-23] MEDS: DEXMEDETOMIDINE 1,000 MCG in SODIUM CHLORIDE 0.9% 240 ML IV PRN (23:21)
[2021-07-24] MEDS: CEFEPIME 2 GM in DEXTROSE 5% 100 ML IV SCH ×3 (00:47→17:01)
[2021-07-24 04:01] LABS: BASOPHILS % (AUTO) 0 % (0-1); EOSINOPHILS % (AUTO) 2 % (1-7); LYMPHOCYTES % (AUTO) 8 % (22-44); MEAN CORPUSCULAR HEMOGLOBIN 31.5 pg (27.5-34.5); MONOCYTES % (AUTO) 11 % (2-9); NEUTROPHILS % (AUTO) 79 % (42-75); PLATELET COUNT 137 x10^3/uL (130-400); RED BLOOD COUNT 2.78 x10^6/uL (4.38-5.82); RED CELL DISTRIBUTION WIDTH 14.2 % (9.4-14.8)
[2021-07-24 04:08] LABS: CHLORIDE 109 mmol/L (98-107)
[2021-07-24 04:13] LABS: ALANINE AMINOTRANSFERASE 102 U/L (12-78); ALBUMIN 2.3 g/dL (3.4-5.0); ALKALINE PHOSPHATASE 79 U/L (45-117); ANION GAP 4 mmol/L (5-15); BILIRUBIN, DIRECT 0.5 mg/dL (0.1-0.2); BILIRUBIN,INDIRECT 0.5 mg/dL (0.0-2.0); CALCIUM 8.2 mg/dL (8.5-10.1); CREATININE 0.82 mg/dL (0.7-1.3); TOTAL PROTEIN 6.9 g/dL (6.4-8.2)
[2021-07-24] MEDS: INSULIN LISPRO 100 UNITS/ML, PEN SQ-INSULIN SCH ×4 (05:00→22:56)
[2021-07-24] MEDS: VANCOMYCIN 1,200 MG in SODIUM CHLORIDE 0.9% 250 ML IV SCH ×2 (05:34→17:33)
[2021-07-24] MEDS: POTASSIUM CHLORIDE 20 MEQ PACKET PO SCH ×2 (07:44→17:01)
[2021-07-24] MEDS: FUROSEMIDE 20 MG/2 ML IV SCH ×2 (07:44→17:01)
[2021-07-24] MEDS: SODIUM CHLORIDE FLUSH 10ML SYR IVF SCH ×2 (07:44→21:12)
[2021-07-24] MEDS: PANTOPRAZOLE GRAN. PKT 40 MG PO SCH (07:44)
[2021-07-24] MEDS: ENOXAPARIN 40 MG/0.4 ML SQ SCH (09:32)
[2021-07-24] MEDS: DOCUSATE 50 MG/5 ML, 10ML UDC PO SCH ×2 (09:32→21:13)
[2021-07-24] MEDS: POLYETHYLENE GLYCOL 17 GM PACKET PO SCH (09:32)
[2021-07-24] MEDS: MIDODRINE 5 MG TABLET PO SCH ×3 (09:32→21:13)
[2021-07-24] MEDS: QUETIAPINE 25MG TABLET PO SCH (09:32)
[2021-07-24] MEDS: SENNA/DOCUSATE TABLET PO SCH ×2 (09:32→21:12)
[2021-07-24] MEDS: ASPIRIN 81 MG TABLET CHEW PO SCH (09:32)
[2021-07-24] MEDS: DEXMEDETOMIDINE 1,000 MCG in SODIUM CHLORIDE 0.9% 240 ML IV PRN (17:02)
[2021-07-24] MEDS: ATORVASTATIN 40 MG TABLET PO SCH (21:13)
[2021-07-25] MEDS: CEFEPIME 2 GM in DEXTROSE 5% 100 ML IV SCH ×3 (01:23→17:51)
[2021-07-25] MEDS: VANCOMYCIN 1,200 MG in SODIUM CHLORIDE 0.9% 250 ML IV SCH (05:03)
[2021-07-25] MEDS: INSULIN LISPRO 100 UNITS/ML, PEN SQ-INSULIN SCH ×4 (05:17→23:00)
[2021-07-25 05:35] LABS: BASOPHILS % (AUTO) 0 % (0-1); EOSINOPHILS % (AUTO) 2 % (1-7); LYMPHOCYTES % (AUTO) 9 % (22-44); MEAN CORPUSCULAR HEMOGLOBIN 31.8 pg (27.5-34.5); MEAN CORPUSCULAR HGB CONC 33.2 g/dL (33.2-36.2); MEAN PLATELET VOLUME 9.8 fL (7.4-10.4); MONOCYTES % (AUTO) 11 % (2-9); NEUTROPHILS % (AUTO) 77 % (42-75); PLATELET COUNT 144 x10^3/uL (130-400); RED BLOOD COUNT 2.62 x10^6/uL (4.38-5.82); RED CELL DISTRIBUTION WIDTH 14.1 % (9.4-14.8)
[2021-07-25 05:45] LABS: ANION GAP 3 mmol/L (5-15); CALCIUM 8.4 mg/dL (8.5-10.1); CHLORIDE 108 mmol/L (98-107); CREATININE 0.65 mg/dL (0.7-1.3)
[2021-07-25] MEDS: PANTOPRAZOLE GRAN. PKT 40 MG PO SCH (07:30)
[2021-07-25] MEDS: POTASSIUM CHLORIDE 20 MEQ PACKET PO SCH ×2 (08:00→16:17)
[2021-07-25] MEDS: ENOXAPARIN 40 MG/0.4 ML SQ SCH (08:59)
[2021-07-25] MEDS: FUROSEMIDE 20 MG/2 ML IV SCH ×2 (08:59→16:17)
[2021-07-25] MEDS: POLYETHYLENE GLYCOL 17 GM PACKET PO SCH (09:00)
[2021-07-25] MEDS: SENNA/DOCUSATE TABLET PO SCH ×2 (09:00→21:00)
[2021-07-25] MEDS: MIDODRINE 5 MG TABLET PO SCH ×3 (09:00→21:46)
[2021-07-25] MEDS: DOCUSATE 50 MG/5 ML, 10ML UDC PO SCH ×2 (09:00→21:46)
[2021-07-25] MEDS: ASPIRIN 81 MG TABLET CHEW PO SCH (09:00)
[2021-07-25] MEDS: QUETIAPINE 25MG TABLET PO SCH (09:00)
[2021-07-25] MEDS: SODIUM CHLORIDE FLUSH 10ML SYR IVF SCH ×2 (15:16→21:46)
[2021-07-25 19:43] VITALS: BP 126/78
[2021-07-25] MEDS: ATORVASTATIN 40 MG TABLET PO SCH (21:46)
[2021-07-26] VITALS (14 sets, daily range): BP systolic 76–137; BP diastolic 45–79
[2021-07-26] MEDS: INSULIN LISPRO 100 UNITS/ML, PEN SQ-INSULIN SCH ×4 (05:00→23:00)
[2021-07-26] MEDS: PANTOPRAZOLE GRAN. PKT 40 MG PO SCH (06:33)
[2021-07-26] MEDS: FUROSEMIDE 20 MG/2 ML IV SCH ×2 (06:33→20:00)
[2021-07-26] MEDS: DOCUSATE 50 MG/5 ML, 10ML UDC PO SCH ×2 (10:31→22:20)
[2021-07-26] MEDS: POLYETHYLENE GLYCOL 17 GM PACKET PO SCH (10:31)
[2021-07-26] MEDS: SENNA/DOCUSATE TABLET PO SCH ×2 (10:31→21:00)
[2021-07-26] MEDS: SODIUM CHLORIDE FLUSH 10ML SYR IVF SCH ×2 (10:31→21:00)
[2021-07-26] MEDS: QUETIAPINE 25MG TABLET PO SCH (10:39)
[2021-07-26] MEDS: MIDODRINE 5 MG TABLET PO SCH ×3 (10:39→22:20)
[2021-07-26] MEDS: POTASSIUM CHLORIDE 20 MEQ PACKET PO SCH ×2 (10:39→18:09)
[2021-07-26] MEDS: ASPIRIN 81 MG TABLET CHEW PO SCH (10:40)
[2021-07-26] MEDS: ENOXAPARIN 40 MG/0.4 ML SQ SCH (10:40)
[2021-07-26] MEDS: AMIODARONE 450 MG in DEXTROSE 5% 241 ML IV PRN ×2 (16:28→23:35)
[2021-07-26] MEDS ORDERED: AMIODARONE 150 MG in DEXTROSE 5% 100 ML IV ONE (16:30)
[2021-07-26] MEDS ORDERED: FILTER 0.22 MICRON IV PRN (16:30)
[2021-07-26] MEDS ORDERED: METOPROLOL 1 MG/ML, 5ML IVPush ONE (17:00)
[2021-07-26] MEDS ORDERED: METOPROLOL 1 MG/ML, 5ML ONE (17:01)
[2021-07-26] MEDS ORDERED: LABETALOL 5MG/ML, 20ML IVPush PRN (17:30)
[2021-07-26] MEDS ORDERED: LABETALOL 5MG/ML, 20ML IVPush ONE (17:30)
[2021-07-26] MEDS: CARVEDILOL 3.125 MG TABLET PO SCH (18:08)
[2021-07-26] MEDS: ATORVASTATIN 40 MG TABLET PO SCH (22:20)
[2021-07-27] VITALS (8 sets, daily range): BP systolic 99–130; BP diastolic 63–80
[2021-07-27 04:59] LABS: BASOPHILS % (AUTO) 1 % (0-1); EOSINOPHILS % (AUTO) 1 % (1-7); LYMPHOCYTES % (AUTO) 7 % (22-44); MEAN CORPUSCULAR HEMOGLOBIN 31.5 pg (27.5-34.5); MEAN CORPUSCULAR HGB CONC 33.6 g/dL (33.2-36.2); MEAN PLATELET VOLUME 9.4 fL (7.4-10.4); MONOCYTES % (AUTO) 9 % (2-9); NEUTROPHILS % (AUTO) 83 % (42-75); PLATELET COUNT 227 x10^3/uL (130-400); RED BLOOD COUNT 3.58 x10^6/uL (4.38-5.82); RED CELL DISTRIBUTION WIDTH 14.5 % (9.4-14.8)
[2021-07-27] MEDS: INSULIN LISPRO 100 UNITS/ML, PEN SQ-INSULIN SCH ×4 (05:00→23:47)
[2021-07-27] MEDS: CARVEDILOL 3.125 MG TABLET PO SCH ×2 (06:11→21:35)
[2021-07-27] MEDS: PANTOPRAZOLE GRAN. PKT 40 MG PO SCH (06:12)
[2021-07-27] MEDS: FUROSEMIDE 20 MG/2 ML IV SCH ×2 (06:12→21:34)
[2021-07-27] MEDS ORDERED: SCOPOLAMINE 1MG PATCH TD ONE (09:30)
[2021-07-27] MEDS: ASPIRIN 81 MG TABLET CHEW PO SCH (10:34)
[2021-07-27] MEDS: POTASSIUM CHLORIDE 20 MEQ PACKET PO SCH ×2 (10:34→21:35)
[2021-07-27] MEDS: SODIUM CHLORIDE FLUSH 10ML SYR IVF SCH ×2 (10:34→21:35)
[2021-07-27] MEDS: QUETIAPINE 25MG TABLET PO SCH (10:35)
[2021-07-27] MEDS: SENNA/DOCUSATE TABLET PO SCH ×2 (10:35→21:36)
[2021-07-27] MEDS: MIDODRINE 5 MG TABLET PO SCH ×3 (10:36→21:36)
[2021-07-27] MEDS: POLYETHYLENE GLYCOL 17 GM PACKET PO SCH (10:36)
[2021-07-27] MEDS: ENOXAPARIN 40 MG/0.4 ML SQ SCH (10:37)
[2021-07-27] MEDS: DOCUSATE 50 MG/5 ML, 10ML UDC PO SCH ×2 (10:37→21:35)
[2021-07-27 11:39] LABS: ALANINE AMINOTRANSFERASE 115 U/L (12-78); ANION GAP 5 mmol/L (5-15); CALCIUM 9.3 mg/dL (8.5-10.1); CHLORIDE 108 mmol/L (98-107); CREATININE 0.87 mg/dL (0.7-1.3)
[2021-07-27 11:40] LABS: ALKALINE PHOSPHATASE 109 U/L (45-117)
[2021-07-27] MEDS: AMIODARONE 200 MG TABLET PO SCH ×2 (16:00→22:29)
[2021-07-27] MEDS: AMIODARONE 450 MG in DEXTROSE 5% 241 ML IV PRN (17:21)
[2021-07-27] MEDS ORDERED: OMNIPAQUE 350 MG/ML, 100ML BOTTLE ONE (20:00)
[2021-07-27] MEDS: ATORVASTATIN 40 MG TABLET PO SCH (21:36)
[2021-07-27] MEDS: CLOPIDOGREL 75 MG TABLET NG SCH (21:38)
[2021-07-28] VITALS (8 sets, daily range): BP systolic 112–144; BP diastolic 74–88
[2021-07-28] MEDS: PIPERACILLIN/TAZO 3.375 GM in DEXTROSE 5% 50 ML IV SCH ×4 (01:40→20:41)
[2021-07-28 05:30] LABS: BASOPHILS % (AUTO) 0 % (0-1); EOSINOPHILS % (AUTO) 2 % (1-7); LYMPHOCYTES % (AUTO) 11 % (22-44); MEAN CORPUSCULAR HEMOGLOBIN 30.9 pg (27.5-34.5); MEAN CORPUSCULAR HGB CONC 32.8 g/dL (33.2-36.2); MONOCYTES % (AUTO) 12 % (2-9); NEUTROPHILS % (AUTO) 75 % (42-75); PLATELET COUNT 285 x10^3/uL (130-400); RED BLOOD COUNT 3.86 x10^6/uL (4.38-5.82); RED CELL DISTRIBUTION WIDTH 14.5 % (9.4-14.8)
[2021-07-28] MEDS: INSULIN LISPRO 100 UNITS/ML, PEN SQ-INSULIN SCH ×3 (05:32→17:58)
[2021-07-28 05:36] LABS: ANION GAP 8 mmol/L (5-15); CALCIUM 9.3 mg/dL (8.5-10.1); CHLORIDE 106 mmol/L (98-107); CREATININE 1.05 mg/dL (0.7-1.3)
[2021-07-28 05:37] LABS: ALANINE AMINOTRANSFERASE 111 U/L (12-78); ALBUMIN 2.9 g/dL (3.4-5.0)
[2021-07-28 05:39] LABS: ALKALINE PHOSPHATASE 108 U/L (45-117); BILIRUBIN,TOTAL 1.2 mg/dL (0.2-1.0); TOTAL PROTEIN 8.3 g/dL (6.4-8.2)
[2021-07-28] MEDS: DOCUSATE 50 MG/5 ML, 10ML UDC PO SCH ×2 (09:00→20:41)
[2021-07-28] MEDS: QUETIAPINE 25MG TABLET PO SCH (09:00)
[2021-07-28] MEDS: ENOXAPARIN 40 MG/0.4 ML SQ SCH ×2 (09:00→09:59)
[2021-07-28] MEDS: POLYETHYLENE GLYCOL 17 GM PACKET PO SCH (09:00)
[2021-07-28] MEDS: SENNA/DOCUSATE TABLET PO SCH ×2 (09:00→20:41)
[2021-07-28] MEDS: PANTOPRAZOLE GRAN. PKT 40 MG PO SCH (09:57)
[2021-07-28] MEDS: ASPIRIN 81 MG TABLET CHEW PO SCH (09:58)
[2021-07-28] MEDS: POTASSIUM CHLORIDE 20 MEQ PACKET PO SCH ×2 (09:58→17:56)
[2021-07-28] MEDS: CLOPIDOGREL 75 MG TABLET NG SCH (09:58)
[2021-07-28] MEDS: FUROSEMIDE 20 MG/2 ML IV SCH ×2 (09:58→17:57)
[2021-07-28] MEDS: AMIODARONE 200 MG TABLET PO SCH ×2 (09:58→20:40)
[2021-07-28] MEDS: MIDODRINE 5 MG TABLET PO SCH ×3 (09:59→20:40)
[2021-07-28] MEDS: CARVEDILOL 3.125 MG TABLET PO SCH ×2 (09:59→17:56)
[2021-07-28] MEDS: SODIUM CHLORIDE FLUSH 10ML SYR IVF SCH ×2 (10:00→20:41)
[2021-07-28] MEDS ORDERED: HEPARIN 25,000 UNITS/250ML PMX 250 ML IV PRN (11:00)
[2021-07-28] MEDS ORDERED: HEPARIN 5,000 UNITS/ML, 1ML IV ONE (11:00)
[2021-07-28] MEDS ORDERED: HEPARIN 5,000 UNITS/ML, 1ML IV PRN (11:00)
[2021-07-28] MEDS ORDERED: QUETIAPINE 25MG TABLET PO PRN (20:00)
[2021-07-28] MEDS: ATORVASTATIN 40 MG TABLET PO SCH (20:40)
[2021-07-29] MEDS: INSULIN LISPRO 100 UNITS/ML, PEN SQ-INSULIN SCH ×5 (00:01→23:48)
[2021-07-29 01:41] VITALS: BP 134/81
[2021-07-29] MEDS: PIPERACILLIN/TAZO 3.375 GM in DEXTROSE 5% 50 ML IV SCH ×4 (02:04→19:52)
[2021-07-29] MEDS: CARVEDILOL 3.125 MG TABLET PO SCH ×2 (05:50→17:41)
[2021-07-29 06:39] VITALS: BP 133/83
[2021-07-29] MEDS: FUROSEMIDE 20 MG/2 ML IV SCH ×2 (09:15→17:42)
[2021-07-29] MEDS: POTASSIUM CHLORIDE 20 MEQ PACKET PO SCH ×2 (09:16→17:42)
[2021-07-29] MEDS: PANTOPRAZOLE GRAN. PKT 40 MG PO SCH (09:17)
[2021-07-29] MEDS: AMIODARONE 200 MG TABLET PO SCH ×2 (09:17→19:52)
[2021-07-29] MEDS: ASPIRIN 81 MG TABLET CHEW PO SCH (09:18)
[2021-07-29] MEDS: MIDODRINE 5 MG TABLET PO SCH ×3 (09:18→19:51)
[2021-07-29] MEDS: CLOPIDOGREL 75 MG TABLET NG SCH (09:18)
[2021-07-29] MEDS: SODIUM CHLORIDE FLUSH 10ML SYR IVF SCH ×2 (09:19→19:43)
[2021-07-29] MEDS: DOCUSATE 50 MG/5 ML, 10ML UDC PO SCH ×2 (09:19→19:42)
[2021-07-29] MEDS: POLYETHYLENE GLYCOL 17 GM PACKET PO SCH (09:20)
[2021-07-29] MEDS: SENNA/DOCUSATE TABLET PO SCH ×2 (09:21→19:43)
[2021-07-29 12:30] VITALS: BP 119/77
[2021-07-29] MEDS ORDERED: QUETIAPINE 25MG TABLET PO ONE (17:30)
[2021-07-29 17:36] VITALS: BP 136/78
[2021-07-29 18:13] LABS: BASOPHILS % (AUTO) 1 % (0-1); EOSINOPHILS % (AUTO) 1 % (1-7); LYMPHOCYTES % (AUTO) 10 % (22-44); MEAN CORPUSCULAR HEMOGLOBIN 31.6 pg (27.5-34.5); MEAN CORPUSCULAR HGB CONC 33.1 g/dL (33.2-36.2); MEAN PLATELET VOLUME 8.6 fL (7.4-10.4); MONOCYTES % (AUTO) 13 % (2-9); NEUTROPHILS % (AUTO) 76 % (42-75); PLATELET COUNT 361 x10^3/uL (130-400); RED BLOOD COUNT 3.91 x10^6/uL (4.38-5.82); RED CELL DISTRIBUTION WIDTH 14.7 % (9.4-14.8)
[2021-07-29 18:23] LABS: ALANINE AMINOTRANSFERASE 93 U/L (12-78); ANION GAP 6 mmol/L (5-15); CALCIUM 9.2 mg/dL (8.5-10.1); CHLORIDE 105 mmol/L (98-107); CREATININE 1.25 mg/dL (0.7-1.3)
[2021-07-29 18:25] LABS: ALKALINE PHOSPHATASE 114 U/L (45-117); BILIRUBIN,TOTAL 0.9 mg/dL (0.2-1.0); TOTAL PROTEIN 8.5 g/dL (6.4-8.2)
[2021-07-29] MEDS: ATORVASTATIN 40 MG TABLET PO SCH (19:52)
[2021-07-29 20:47] VITALS: BP 106/70
[2021-07-30] MEDS: PIPERACILLIN/TAZO 3.375 GM in DEXTROSE 5% 50 ML IV SCH ×4 (01:01→20:38)
[2021-07-30 02:06] VITALS: BP 104/65
[2021-07-30] MEDS: CARVEDILOL 3.125 MG TABLET PO SCH ×2 (05:44→17:33)
[2021-07-30] MEDS: ACETAMINOPHEN 500 MG TABLET PO PRN (05:44)
[2021-07-30] MEDS: INSULIN LISPRO 100 UNITS/ML, PEN SQ-INSULIN SCH ×2 (05:46→11:00)
[2021-07-30] MEDS: POTASSIUM CHLORIDE 20 MEQ PACKET PO SCH (08:22)
[2021-07-30] MEDS: SENNA/DOCUSATE TABLET PO SCH (08:23)
[2021-07-30] MEDS: ASPIRIN 81 MG TABLET CHEW PO SCH (08:23)
[2021-07-30] MEDS: CLOPIDOGREL 75 MG TABLET NG SCH (08:23)
[2021-07-30] MEDS: PANTOPRAZOLE GRAN. PKT 40 MG PO SCH (08:23)
[2021-07-30] MEDS: MIDODRINE 5 MG TABLET PO SCH ×3 (08:23→20:38)
[2021-07-30] MEDS: POLYETHYLENE GLYCOL 17 GM PACKET PO SCH (08:23)
[2021-07-30] MEDS: AMIODARONE 200 MG TABLET PO SCH ×2 (08:24→20:39)
[2021-07-30] MEDS: DOCUSATE 50 MG/5 ML, 10ML UDC PO SCH (08:24)
[2021-07-30] MEDS: SODIUM CHLORIDE FLUSH 10ML SYR IVF SCH ×2 (08:24→20:39)
[2021-07-30] MEDS: FUROSEMIDE 20 MG/2 ML IV SCH (08:25)
[2021-07-30 08:39] VITALS: BP 139/83
[2021-07-30] MEDS: BUPROPION 75 MG TABLET PO SCH ×3 (12:12→20:39)
[2021-07-30 13:30] VITALS: BP 124/76
[2021-07-30] MEDS: FUROSEMIDE 20 MG TABLET NG SCH (16:38)
[2021-07-30 19:30] VITALS: BP 122/82
[2021-07-30] MEDS: ATORVASTATIN 40 MG TABLET PO SCH (20:39)
[2021-07-30] MEDS ORDERED: QUETIAPINE 25MG TABLET PO SCH (21:00)
[2021-07-31] MEDS: PIPERACILLIN/TAZO 3.375 GM in DEXTROSE 5% 50 ML IV SCH ×4 (01:06→22:49)
[2021-07-31 01:47] VITALS: BP 128/75
[2021-07-31 07:52] VITALS: BP 145/80
[2021-07-31] MEDS: MIDODRINE 5 MG TABLET PO SCH ×3 (08:55→22:38)
[2021-07-31] MEDS: CLOPIDOGREL 75 MG TABLET NG SCH (08:55)
[2021-07-31] MEDS: FUROSEMIDE 20 MG TABLET NG SCH ×2 (08:56→17:03)
[2021-07-31] MEDS: AMIODARONE 200 MG TABLET PO SCH ×2 (08:56→22:37)
[2021-07-31] MEDS: BUPROPION 75 MG TABLET PO SCH ×3 (08:56→22:37)
[2021-07-31] MEDS: CARVEDILOL 3.125 MG TABLET PO SCH ×2 (08:56→17:02)
[2021-07-31] MEDS: ASPIRIN 81 MG TABLET CHEW PO SCH (08:57)
[2021-07-31] MEDS: POLYETHYLENE GLYCOL 17 GM PACKET PO SCH (08:57)
[2021-07-31] MEDS: PANTOPRAZOLE GRAN. PKT 40 MG PO SCH (09:00)
[2021-07-31] MEDS: SODIUM CHLORIDE FLUSH 10ML SYR IVF SCH ×2 (09:00→22:49)
[2021-07-31 13:09] VITALS: BP 129/88
[2021-07-31] MEDS ORDERED: ZIPRASIDONE 20 MG INJ IM ONE (17:30)
[2021-07-31 19:18] VITALS: BP 127/78
[2021-07-31] MEDS: ATORVASTATIN 40 MG TABLET PO SCH (22:37)
[2021-08-01 01:51] VITALS: BP 120/70
[2021-08-01] MEDS: PIPERACILLIN/TAZO 3.375 GM in DEXTROSE 5% 50 ML IV SCH ×4 (04:39→22:08)
[2021-08-01 06:25] VITALS: BP 127/77
[2021-08-01] MEDS: CARVEDILOL 3.125 MG TABLET PO SCH ×2 (06:27→17:30)
[2021-08-01 06:36] VITALS: BP 127/77
[2021-08-01] MEDS: CLOPIDOGREL 75 MG TABLET NG SCH (08:32)
[2021-08-01] MEDS: FUROSEMIDE 20 MG TABLET NG SCH ×2 (08:32→17:30)
[2021-08-01] MEDS: AMIODARONE 200 MG TABLET PO SCH ×2 (08:32→22:35)
[2021-08-01] MEDS: BUPROPION 75 MG TABLET PO SCH ×3 (08:32→22:34)
[2021-08-01] MEDS: MIDODRINE 5 MG TABLET PO SCH ×3 (08:33→22:07)
[2021-08-01] MEDS: POLYETHYLENE GLYCOL 17 GM PACKET PO SCH (08:33)
[2021-08-01] MEDS: ASPIRIN 81 MG TABLET CHEW PO SCH (08:33)
[2021-08-01] MEDS: QUETIAPINE 25MG TABLET PO SCH ×3 (08:33→22:34)
[2021-08-01] MEDS: PANTOPRAZOLE GRAN. PKT 40 MG PO SCH (08:33)
[2021-08-01] MEDS: SODIUM CHLORIDE FLUSH 10ML SYR IVF SCH ×2 (09:16→22:08)
[2021-08-01 14:22] VITALS: BP 115/70
[2021-08-01 19:23] VITALS: BP 102/61
[2021-08-01] MEDS: ATORVASTATIN 40 MG TABLET PO SCH (22:07)
[2021-08-02 01:16] VITALS: BP 106/62
[2021-08-02 05:17] VITALS: BP 107/65
[2021-08-02] MEDS: CARVEDILOL 3.125 MG TABLET PO SCH ×2 (05:18→17:08)
[2021-08-02] MEDS: PIPERACILLIN/TAZO 3.375 GM in DEXTROSE 5% 50 ML IV SCH ×4 (05:18→23:00)
[2021-08-02 05:34] LABS: BASOPHILS % (AUTO) 1 % (0-1); EOSINOPHILS % (AUTO) 3 % (1-7); LYMPHOCYTES % (AUTO) 17 % (22-44); MEAN CORPUSCULAR HEMOGLOBIN 31.6 pg (27.5-34.5); MEAN CORPUSCULAR HGB CONC 33.4 g/dL (33.2-36.2); MEAN PLATELET VOLUME 7.6 fL (7.4-10.4); MONOCYTES % (AUTO) 12 % (2-9); NEUTROPHILS % (AUTO) 67 % (42-75); PLATELET COUNT 321 x10^3/uL (130-400); RED BLOOD COUNT 3.43 x10^6/uL (4.38-5.82); RED CELL DISTRIBUTION WIDTH 14.8 % (9.4-14.8)
[2021-08-02 05:48] LABS: ANION GAP 7 mmol/L (5-15); CALCIUM 8.4 mg/dL (8.5-10.1); CHLORIDE 101 mmol/L (98-107)
[2021-08-02 05:51] LABS: CREATININE 1.13 mg/dL (0.7-1.3)
[2021-08-02 07:18] VITALS: BP 97/59
[2021-08-02] MEDS ORDERED: POTASSIUM CHLORIDE 20 MEQ PACKET PO ONE (08:00)
[2021-08-02] MEDS: BUPROPION 75 MG TABLET PO SCH ×3 (08:43→21:16)
[2021-08-02] MEDS: QUETIAPINE 25MG TABLET PO SCH ×3 (08:44→21:15)
[2021-08-02] MEDS: ASPIRIN 81 MG TABLET CHEW PO SCH (08:45)
[2021-08-02] MEDS: PANTOPRAZOLE GRAN. PKT 40 MG PO SCH (08:45)
[2021-08-02] MEDS: CLOPIDOGREL 75 MG TABLET NG SCH (08:45)
[2021-08-02] MEDS: FUROSEMIDE 20 MG TABLET NG SCH ×2 (08:45→17:07)
[2021-08-02] MEDS: MIDODRINE 5 MG TABLET PO SCH ×3 (08:46→21:14)
[2021-08-02] MEDS: AMIODARONE 200 MG TABLET PO SCH ×2 (08:46→21:12)
[2021-08-02] MEDS: POLYETHYLENE GLYCOL 17 GM PACKET PO SCH (08:48)
[2021-08-02] MEDS: SODIUM CHLORIDE FLUSH 10ML SYR IVF SCH ×2 (09:00→21:12)
[2021-08-02 09:46] VITALS: BP 106/67
[2021-08-02] MEDS ORDERED: POTASSIUM CHLORIDE 20 MEQ TAB.ER.PRT PO ONE (10:30)
[2021-08-02 15:00] VITALS: BP 100/63
[2021-08-02 21:08] VITALS: BP 102/64
[2021-08-02] MEDS: ATORVASTATIN 40 MG TABLET PO SCH (21:13)
[2021-08-03 03:13] VITALS: BP 92/55
[2021-08-03] MEDS: PIPERACILLIN/TAZO 3.375 GM in DEXTROSE 5% 50 ML IV SCH ×4 (05:23→22:35)
[2021-08-03 05:38] VITALS: BP 98/63
[2021-08-03] MEDS: CARVEDILOL 3.125 MG TABLET PO SCH ×2 (05:41→15:55)
[2021-08-03] MEDS: FUROSEMIDE 20 MG TABLET NG SCH ×2 (08:39→15:55)
[2021-08-03] MEDS: CLOPIDOGREL 75 MG TABLET NG SCH (08:39)
[2021-08-03] MEDS: MIDODRINE 5 MG TABLET PO SCH ×3 (08:39→19:49)
[2021-08-03] MEDS: BUPROPION 75 MG TABLET PO SCH ×2 (08:39→15:55)
[2021-08-03] MEDS: AMIODARONE 200 MG TABLET PO SCH ×2 (08:40→19:49)
[2021-08-03] MEDS: POLYETHYLENE GLYCOL 17 GM PACKET PO SCH (08:40)
[2021-08-03] MEDS: PANTOPRAZOLE GRAN. PKT 40 MG PO SCH (08:40)
[2021-08-03 08:45] VITALS: BP 106/67
[2021-08-03] MEDS: ASPIRIN 81 MG TABLET CHEW PO SCH (09:00)
[2021-08-03] MEDS: QUETIAPINE 25MG TABLET PO SCH ×3 (09:00→19:49)
[2021-08-03] MEDS: SODIUM CHLORIDE FLUSH 10ML SYR IVF SCH ×2 (09:54→22:34)
[2021-08-03 12:04] LABS: ANION GAP 7 mmol/L (5-15); CALCIUM 8.1 mg/dL (8.5-10.1); CHLORIDE 99 mmol/L (98-107); CREATININE 1.19 mg/dL (0.7-1.3)
[2021-08-03 13:45] VITALS: BP 98/61
[2021-08-03 19:11] VITALS: BP 91/57
[2021-08-03 19:46] VITALS: BP 96/61
[2021-08-03] MEDS: ATORVASTATIN 40 MG TABLET PO SCH (19:49)
[2021-08-04 00:45] VITALS: BP 96/57
[2021-08-04] MEDS: PIPERACILLIN/TAZO 3.375 GM in DEXTROSE 5% 50 ML IV SCH (05:10)
[2021-08-04 06:12] VITALS: BP 108/68
[2021-08-04] MEDS: CARVEDILOL 3.125 MG TABLET PO SCH (06:16)
[2021-08-04] MEDS: PANTOPRAZOLE GRAN. PKT 40 MG PO SCH (06:16)
[2021-08-04] MEDS ORDERED: BISACODYL 10 MG SUPP PR PRN (07:00)
[2021-08-04] MEDS ORDERED: OCULAR LUBRICANT EACHEYE (07:10)
[2021-08-04] MEDS ORDERED: AMIO200T42 PO (07:10)
[2021-08-04] MEDS ORDERED: MIDO5TAB9 PO (07:10)
[2021-08-04] MEDS ORDERED: ACET-1600 PO (07:10)
[2021-08-04] MEDS ORDERED: PANT40GR PO (07:10)
[2021-08-04] MEDS ORDERED: CARV3.1212 PO (07:10)
[2021-08-04] MEDS ORDERED: CLOP75TA NG (07:10)
[2021-08-04] MEDS ORDERED: BISA10SU4 PR (07:10)
[2021-08-04] MEDS ORDERED: ATOR40TA78 PO (07:10)
[2021-08-04] MEDS ORDERED: FURO20TA3 PO (07:10)
[2021-08-04] MEDS ORDERED: POLY17PO5 PO (07:10)
[2021-08-04] MEDS ORDERED: BUPR75TA6 PO (07:10)
[2021-08-04] MEDS ORDERED: QUET25TA7 PO (07:10)
[2021-08-04] MEDS: FUROSEMIDE 20 MG TABLET NG SCH (07:59)
[2021-08-04 09:05] VITALS: BP 124/77
[2021-08-04] MEDS: POLYETHYLENE GLYCOL 17 GM PACKET PO SCH (09:06)
[2021-08-04] MEDS: MIDODRINE 5 MG TABLET PO SCH (09:07)
[2021-08-04] MEDS: ASPIRIN 81 MG TABLET CHEW PO SCH (09:07)
[2021-08-04] MEDS: QUETIAPINE 25MG TABLET PO SCH (09:07)
[2021-08-04] MEDS: AMIODARONE 200 MG TABLET PO SCH (09:07)
[2021-08-04] MEDS: SODIUM CHLORIDE FLUSH 10ML SYR IVF SCH (09:07)
[2021-08-04] MEDS: CLOPIDOGREL 75 MG TABLET NG SCH (09:07)
== END 2021-08-04 13:01 | DRG 215 ==
LOC: ED 19:30 → EDIP 21:28 → CSU 07-14 03:13 → 5SO 07-25 18:13
PROVIDERS: ADMIT Internal Medicine; ATTEND Internal Medicine
PROC: 02HA3RZ Insertion of Short-term External Heart Assist System into Heart, Percutaneous Approach (ICD-10-PCS; 2021-07-13)
PROC: 5A0221D Assistance with Cardiac Output using Impeller Pump, Continuous (ICD-10-PCS; 2021-07-13)
PROC: 4A023N7 Measurement of Cardiac Sampling and Pressure, Left Heart, Percutaneous Approach (ICD-10-PCS; 2021-07-13)
PROC: B2111ZZ Fluoroscopy of Multiple Coronary Arteries using Low Osmolar Contrast (ICD-10-PCS; 2021-07-13)
PROC: B2151ZZ Fluoroscopy of Left Heart using Low Osmolar Contrast (ICD-10-PCS; 2021-07-13)
PROC: B4101ZZ Fluoroscopy of Abdominal Aorta using Low Osmolar Contrast (ICD-10-PCS; 2021-07-13)
PROC: 5A1213Z Performance of Cardiac Pacing, Intermittent (ICD-10-PCS; 2021-07-13)
PROC: 5A1945Z Respiratory Ventilation, 24-96 Consecutive Hours (ICD-10-PCS; principal; 2021-07-14)
PROC: 0BH17EZ Insertion of Endotracheal Airway into Trachea, Via Natural or Artificial Opening (ICD-10-PCS; 2021-07-14)
PROC: XW13325 Transfusion of Convalescent Plasma (Nonautologous) into Peripheral Vein, Percutaneous Approach, New Technology Group 5 (ICD-10-PCS; 2021-07-14)
PROC: 021109W Bypass Coronary Artery, Two Arteries from Aorta with Autologous Venous Tissue, Open Approach (ICD-10-PCS; 2021-07-14)
PROC: 06BQ4ZZ Excision of Left Saphenous Vein, Percutaneous Endoscopic Approach (ICD-10-PCS; 2021-07-14)
PROC: 02PA0RZ Removal of Short-term External Heart Assist System from Heart, Open Approach (ICD-10-PCS; 2021-07-14)
PROC: 5A02210 Assistance with Cardiac Output using Balloon Pump, Continuous (ICD-10-PCS; 2021-07-14)
PROC: 30233M1 Transfusion of Nonautologous Plasma Cryoprecipitate into Peripheral Vein, Percutaneous Approach (ICD-10-PCS; 2021-07-14)
PROC: 30233R1 Transfusion of Nonautologous Platelets into Peripheral Vein, Percutaneous Approach (ICD-10-PCS; 2021-07-14)
PROC: 03HY33Z Insertion of Infusion Device into Upper Artery, Percutaneous Approach (ICD-10-PCS; 2021-07-14)
PROC: 5A1223Z Performance of Cardiac Pacing, Continuous (ICD-10-PCS; 2021-07-14)
PROC: B24BZZ4 Ultrasonography of Heart with Aorta, Transesophageal (ICD-10-PCS; 2021-07-14)
PROC: 5A1955Z Respiratory Ventilation, Greater than 96 Consecutive Hours (ICD-10-PCS; 2021-07-17)
PROC: 0BH17EZ Insertion of Endotracheal Airway into Trachea, Via Natural or Artificial Opening (ICD-10-PCS; 2021-07-17)
DX: I21.19 ST elevation (STEMI) myocardial infarction involving other coronary artery of inferior wall (principal); G93.41 Metabolic encephalopathy; J96.01 Acute respiratory failure with hypoxia; R57.0 Cardiogenic shock; I44.2 Atrioventricular block, complete; I48.92 Unspecified atrial flutter; I50.20 Unspecified systolic (congestive) heart failure; N39.0 Urinary tract infection, site not specified; G45.9 Transient cerebral ischemic attack, unspecified; I25.10 Atherosclerotic heart disease of native coronary artery without angina pectoris; B96.5 Pseudomonas (aeruginosa) (mallei) (pseudomallei) as the cause of diseases classified elsewhere; D64.9 Anemia, unspecified; D69.6 Thrombocytopenia, unspecified; E78.5 Hyperlipidemia, unspecified; E87.6 Hypokalemia; F32.9 Major depressive disorder, single episode, unspecified; H40.9 Unspecified glaucoma; I11.0 Hypertensive heart disease with heart failure; G45.4 Transient global amnesia; I25.84 Coronary atherosclerosis due to calcified coronary lesion; I48.0 Paroxysmal atrial fibrillation; R47.1 Dysarthria and anarthria; Z78.1 Physical restraint status; Z82.49 Family history of ischemic heart disease and other diseases of the circulatory system
CPT/HCPCS: 33210; 33999; 36415; 36600; 74018; 84145; 93458; 96374; 99291; J3490; 70450; 70496; 70498; 70551; 71045; 80048; 80053; 80076; 80202; 82330; 82800; 82803; 82810; 82947; 82962; 83735; 83880; 84100; 84132; 84295; 84484; 85014; 85018; 85025; 85049; 85347; 85520; 85610; 85730; 86022; 86850; 86900; 86923; 87040; 87070; 87077; 87081; 87086; 87186; 87205; 93005; 93306; 93308; 93312; 93321; 93325; 93922; 94002; 94003; 94150; 99156; 99157; C1760; C1769; C1894; G0378; J0171; J0461; J0583; J0697; J1644; J1650; J1815; J2250; J2543; J2704; J2720; J3010; J3370; J3475; J3480; J3486; J7060; J7120; P9045; P9047; Q9967; C1751; C1887; J0282; J0330; J1630; J1940; J2370; J2440; J7030; J7050; P9012; P9016; P9017; P9035